=== PATIENT | female | born 1935 | race Caucasian/White ===

== ENCOUNTER → 2016-09-23 | Outpatient (REF) | payer MEDICARE, OTHER ==
[~2016-09-23] MED LIST: ASPI81TA85 PO; CRES40TA PO; FOSI40TA PO; GLYB1TAB65 PO; LEVO250T24 PO; METO-209 PO; NIFE30TA7 PO; PROC60TA PO
== END ==
LOC: M SFHCPLAZ 14:25
PROVIDERS: ATTEND Family Medicine
DX: E11.9 Type 2 diabetes mellitus without complications (principal); Z53.8 Procedure and treatment not carried out for other reasons

== ENCOUNTER → 2017-07-11 | Outpatient (REF) | payer MEDICARE, OTHER | LOC: M SFHCADAM 13:49 | DX: E11.9 Type 2 diabetes mellitus without complications (principal); R35.0 Frequency of micturition; Z53.8 Procedure and treatment not carried out for other reasons ==

== ENCOUNTER → 2017-07-14 | Outpatient (REF) | payer MEDICARE, OTHER ==
[2017-07-14 13:01] LABS: APPEARANCE, URINE HAZY (CLEAR); BACTERIA, URINE AUTO 1+ (NEGATIVE); BILIRUBIN, URINE AUTO NEGATIVE (NEGATIVE); BLOOD, URINE BLOOD 1+ (NEGATIVE); COLOR, URINE YELLOW (YELLOW); GLUCOSE, URINE (UA) AUTO NEGATIVE (NEGATIVE); KETONE, URINE AUTO NEGATIVE (NEGATIVE); LEUKOCYTE ESTERASE, URINE AUTO 1+ (NEGATIVE); MUCUS, URINE SMALL (NEGATIVE); NITRITE, URINE AUTO NEGATIVE (NEGATIVE); PROTEIN, URINE AUTO NEGATIVE (NEGATIVE); RBC, URINE AUTO 6 /HPF (0-3); SPECIFIC GRAVITY URINE AUTO 1.011 (1.002-1.035); SQUAMOUS EPITHELIAL CELL UR AU 2 /HPF (0-6); UROBILINOGEN, URINE AUTO 0.2 mg/dL (0.0-2.0); WBC, URINE AUTO 11 /HPF (0-3)
== END ==
LOC: M SFHCADAM 10:00
DX: E11.9 Type 2 diabetes mellitus without complications (principal); R35.0 Frequency of micturition
CPT/HCPCS: 81001

== ENCOUNTER → 2018-01-09 | Outpatient (REF) | payer MEDICARE, OTHER ==
[2018-01-09 19:55] LABS: ALBUMIN 4.2 GM/DL (3.2-5.2); ALKALINE PHOSPHATASE 73 U/L (45-117); ALT/SGPT 18 U/L (12-78); ANION GAP 9 MEQ/L (8-16); AST/SGOT 13 U/L (7-37); BILIRUBIN,TOTAL 0.6 MG/DL (0.2-1.0); BLOOD UREA NITROGEN 39 MG/DL (7-18); CALCIUM LEVEL 9.1 MG/DL (8.8-10.2); CARBON DIOXIDE LEVEL 23 MEQ/L (21-32); CHLORIDE LEVEL 112 MEQ/L (98-107); CREATININE FOR GFR 1.31 MG/DL (0.55-1.30); GLOMERULAR FILTRATION RATE 41.2 (>32); GLUCOSE, FASTING 179 MG/DL (70-100); SODIUM LEVEL 144 MEQ/L (136-145); TOTAL PROTEIN 7.2 GM/DL (6.4-8.2)
[2018-01-09 19:58] LABS: POTASSIUM SERUM 5.3 MEQ/L (3.5-5.1)
[2018-01-09 20:01] LABS: ESTIMATED AVERAGE GLUCOSE 177 MG/DL (60-110); HEMOGLOBIN A1c 7.8 %
[2018-01-09 20:11] LABS: APPEARANCE, URINE CLOUDY (CLEAR); BACTERIA, URINE AUTO 1+ (NEGATIVE); BILIRUBIN, URINE AUTO NEGATIVE (NEGATIVE); BLOOD, URINE BLOOD NEGATIVE (NEGATIVE); COLOR, URINE YELLOW (YELLOW); GLUCOSE, URINE (UA) AUTO NEGATIVE (NEGATIVE); KETONE, URINE AUTO NEGATIVE (NEGATIVE); LEUKOCYTE ESTERASE, URINE AUTO TRACE (NEGATIVE); MUCUS, URINE SMALL (NEGATIVE); NITRITE, URINE AUTO NEGATIVE (NEGATIVE); PROTEIN, URINE AUTO 1+ mg/dL (NEGATIVE); RBC, URINE AUTO 4 /HPF (0-3); SPECIFIC GRAVITY URINE AUTO 1.021 (1.002-1.035); SQUAMOUS EPITHELIAL CELL UR AU 4 /HPF (0-6); TRIPLE PHOSPHATE CRYSTALS SMALL; UROBILINOGEN, URINE AUTO 0.2 mg/dL (0.0-2.0); WBC, URINE AUTO 2 /HPF (0-3)
[2018-01-09 20:20] LABS: MAU/CREAT RATIO 221.9 MCG/MG (0.0-30.0)
== END ==
LOC: M LABDRWAD 18:52
DX: E11.69 Type 2 diabetes mellitus with other specified complication (principal); R35.0 Frequency of micturition
CPT/HCPCS: 80053

== ENCOUNTER → 2018-03-04 | Outpatient (REF) | payer MEDICARE, OTHER ==
[2018-03-04 22:32] LABS: MAU/CREAT RATIO 135.9 MCG/MG (0.0-30.0)
== END ==
LOC: M SFHCADAM 09:58
DX: R82.90 Unspecified abnormal findings in urine (principal)
CPT/HCPCS: 82043

== ENCOUNTER → 2018-05-10 | Outpatient (CLI) | payer MEDICARE, OTHER ==
[~2018-05-10] MED LIST changes: -FOSI40TA PO; +FOSI40TA2 PO; +LEVO250T12 PO; -LEVO250T24 PO; -METO-209 PO; +METO1TAB33 PO
[2018-05-10 17:58] LABS: HEMOGLOBIN A1c 7.7 %
== END ==
LOC: M ADAMS 15:50
PROVIDERS: ATTEND Family Medicine
DX: R82.90 Unspecified abnormal findings in urine (principal); E11.69 Type 2 diabetes mellitus with other specified complication

== ENCOUNTER → 2018-07-27 | Outpatient (REF) | payer MEDICARE, OTHER ==
[~2018-07-27] MED LIST changes: -FOSI40TA2 PO; +FOSI40TA3 PO
== END ==
LOC: M SFHCPLAZ 19:01
PROVIDERS: ATTEND Dermatology
DX: C44.319 Basal cell carcinoma of skin of other parts of face (principal); C44.301 Unspecified malignant neoplasm of skin of nose

== ENCOUNTER → 2018-08-10 | Outpatient (REF) | payer MEDICARE, OTHER ==
[~2018-08-10] MED LIST changes: +FOSI40TA2 PO; -FOSI40TA3 PO
[2018-08-10 21:17] LABS: BILIRUBIN,TOTAL 0.5 MG/DL (0.2-1.0); CALCIUM LEVEL 9.3 MG/DL (8.8-10.2); CREATININE FOR GFR 1.14 MG/DL (0.55-1.30); GLOMERULAR FILTRATION RATE 48.3 (>32); POTASSIUM SERUM 4.7 MEQ/L (3.5-5.1); TOTAL PROTEIN 7.4 GM/DL (6.4-8.2)
[2018-08-10 21:26] LABS: HEMOGLOBIN A1c 6.7 %
== END ==
LOC: M SFHCADAM 13:08
PROVIDERS: ATTEND Family Medicine
DX: R80.9 Proteinuria, unspecified (principal)

== ENCOUNTER → 2018-11-09 | Outpatient (REF) | payer MEDICARE, OTHER ==
[~2018-11-09] MED LIST changes: -FOSI40TA2 PO; +FOSI40TA3 PO
[2018-11-09 20:20] LABS: HEMOGLOBIN A1c 6.7 %
== END ==
LOC: M SFHCADAM 14:04
PROVIDERS: ATTEND Family Medicine
DX: E11.69 Type 2 diabetes mellitus with other specified complication (principal)

== ENCOUNTER → 2019-05-08 | Outpatient (REF) | payer MEDICARE, OTHER ==
[~2019-05-08] MED LIST changes: -GLYB1TAB65 PO; +GLYB2.5T13 PO
[2019-05-08 17:47] LABS: ALBUMIN 4.1 GM/DL (3.2-5.2); BILIRUBIN,TOTAL 0.4 MG/DL (0.2-1.0); CALCIUM LEVEL 9.5 MG/DL (8.8-10.2); CREATININE FOR GFR 1.47 MG/DL (0.55-1.30); POTASSIUM SERUM 4.4 MEQ/L (3.5-5.1); TOTAL PROTEIN 7.8 GM/DL (6.4-8.2)
[2019-05-08 17:57] LABS: HEMOGLOBIN A1c 6.6 %
== END ==
LOC: M SFHCADAM 14:05
PROVIDERS: ATTEND Family Medicine
DX: E11.69 Type 2 diabetes mellitus with other specified complication (principal)

== ENCOUNTER → 2019-07-14 | Outpatient (REF) | payer MEDICARE, OTHER ==
[~2019-07-14] MED LIST changes: +NIFE1TAB52 PO; -NIFE30TA7 PO
== END ==
LOC: M SFHCADAM 14:54
PROVIDERS: ATTEND Family Medicine
DX: N18.9 Chronic kidney disease, unspecified (principal); Z53.8 Procedure and treatment not carried out for other reasons

== ENCOUNTER → 2020-03-15 | Outpatient (REF) | payer MEDICARE, OTHER ==
[~2020-03-15] MED LIST changes: -ASPI81TA85 PO; +ASPI81TA86 PO
[2020-03-16 13:14] LABS: HEMOGLOBIN A1c 6.5 %
== END ==
LOC: M SFHCADAM 15:50
PROVIDERS: ATTEND Family Medicine
DX: E11.69 Type 2 diabetes mellitus with other specified complication (principal)
CPT/HCPCS: 83036; G0463

== ENCOUNTER 2021-06-30 12:25 | Inpatient (IN) | payer MEDICARE, OTHER ==
[2021-06-30] VITALS (25 sets, daily range): BP systolic 60–120; BP diastolic 40–61
[~2021-06-30] VITALS: Ht 167.6 cm; Wt 78.2 kg
[~2021-06-30 12:25] MED LIST changes: -FOSI40TA3 PO; +FOSI40TA59 PO; -LEVO250T12 PO; +LEVO250T3 PO
[2021-06-30] MEDS ORDERED: PANTOPRAZOLE 40MG VIAL (C9113 PER 1) IV ONE (12:40)
[2021-06-30 13:08] LABS: BASO % 0.1 % (0.0-1.0); HEMOGLOBIN 10.9 g/dl (12.0-15.5); LYMPH # 0.9 10^3/uL (1.5-5.0); LYMPH % 4.2 % (24.0-44.0); MEAN CORPUSCULAR HEMOGLOBIN 26.1 pg (27.0-33.0); MEAN CORPUSCULAR HGB CONC 31.1 g/dl (32.0-36.5); MEAN CORPUSCULAR VOLUME 83.7 fl (80.0-96.0); MONO # 1.4 10^3/uL (0.0-0.8); MONO % 6.5 % (2.0-8.0); NEUTROPHILS # 19.3 10^3/uL (1.5-8.5); NEUTROPHILS % 88.4 % (36.0-66.0); PLATELET COUNT, AUTOMATED 422 10^3/uL (150-450); RED BLOOD COUNT 4.18 10^6/uL (4.00-5.40); WHITE BLOOD COUNT 21.8 10^3/uL (4.0-10.0)
[2021-06-30 13:19] LABS: INR 1.41; PROTHROMBIN TIME 17.7 SECONDS (12.7-14.5)
[2021-06-30 13:20] LABS: PARTIAL THROMBOPLASTIN TIME 29.5 SECONDS (25.9-37.0)
[2021-06-30] MEDS ORDERED: NS 1,000 ML IV ONE ×2 (13:20→14:20)
[2021-06-30 13:39] LABS: ALBUMIN 1.9 GM/DL (3.2-5.2); BILIRUBIN,DIRECT 0.2 MG/DL (0.0-0.2); BILIRUBIN,TOTAL 0.3 MG/DL (0.2-1.0); TOTAL PROTEIN 5.2 GM/DL (6.4-8.2)
[2021-06-30] MEDS ORDERED: PIPERACILLIN/TAZOBACTAM SOD 2.25 GM in D5W MINI-BAG PLUS 50 ML IV ONE (14:20)
[2021-06-30 15:38] LABS: RSV AMPLIFICATION NEGATIVE (NEGATIVE)
[2021-06-30] MEDS ORDERED: SITA50TAB PO (15:40)
[2021-06-30] MEDS ORDERED: ASPI81TA26 PO (15:40)
[2021-06-30] MEDS ORDERED: FOSI40TA59 PO (15:40)
[2021-06-30] MEDS ORDERED: NIFE30TA50 PO (15:40)
[2021-06-30] MEDS ORDERED: GLIP5TAB8 PO (15:40)
[2021-06-30] MEDS ORDERED: HOME MED LIST COMPLETE! XX SCH (15:45)
[2021-06-30] MEDS ORDERED: GLUCAGON INJ 1MG VIAL SC PRN (19:45)
[2021-06-30] MEDS: NS 1,000 ML IV SCH (19:45)
[2021-06-30] MEDS ORDERED: GLUCOSE 4GM CHEW TABLET PO PRN (19:45)
[2021-06-30] MEDS ORDERED: POTASSIUM CHLORIDE 10MEQ SR TABLET PO ONE (19:45)
[2021-06-30] MEDS ORDERED: NS IV SCH (19:50)
[2021-06-30] MEDS ORDERED: CALCIUM GLUCONATE IV SCH (19:50)
[2021-06-30] MEDS: CALCIUM GLUCONATE 1,000 MG, VIAL MATE ADAPTER 1 EACH in NS 100 ML IV SCH ×4 (20:00→23:00)
[2021-06-30] MEDS: PANTOPRAZOLE 40MG VIAL (C9113 PER 1) IV SCH (20:24)
[2021-06-30] MEDS: ACETAMINOPHEN TAB 650MG DOSE (2X325MG) PO PRN (20:25)
[2021-06-30] MEDS: HumaLOG INSULIN (NovoLOG) PER UNIT SC SCH (20:26)
[2021-07-01] VITALS (42 sets, daily range): BP systolic 75–141; BP diastolic 40–61
[2021-07-01] MEDS ORDERED: NS 1,000 ML IV ONE ×3 (00:10→16:00)
[2021-07-01 00:30] LABS: HEMATOCRIT 37.2 % (36.0-47.0); HEMOGLOBIN 12.1 g/dl (12.0-15.5); MEAN CORPUSCULAR HEMOGLOBIN 27.5 pg (27.0-33.0); MEAN CORPUSCULAR HGB CONC 32.5 g/dl (32.0-36.5); MEAN CORPUSCULAR VOLUME 84.5 fl (80.0-96.0); PLATELET COUNT, AUTOMATED 324 10^3/uL (150-450); WHITE BLOOD COUNT 10.1 10^3/uL (4.0-10.0)
[2021-07-01 00:32] LABS: CK-MB VALUE MASS 29.2 NG/ML (<3.6); MB/CK RELATIVE INDEX 3.85 (< OR =4)
[2021-07-01 01:18] LABS: ALBUMIN 1.8 GM/DL (3.2-5.2); BILIRUBIN,TOTAL 0.3 MG/DL (0.2-1.0); CALCIUM LEVEL 8.1 MG/DL (8.8-10.2); CREATININE FOR GFR 4.69 MG/DL (0.55-1.30); GLOMERULAR FILTRATION RATE 9.4 (>32); PHOSPHORUS LEVEL 4.5 MG/DL (2.5-4.9); POTASSIUM SERUM 3.6 MEQ/L (3.5-5.1); TOTAL PROTEIN 4.8 GM/DL (6.4-8.2)
[2021-07-01] MEDS: ACETAMINOPHEN TAB 650MG DOSE (2X325MG) PO PRN (02:18)
[2021-07-01] MEDS: PIPERACILLIN/TAZOBACTAM SOD 4.5 GM in D5W MINI-BAG PLUS 50 ML IV SCH ×2 (02:18→15:09)
[2021-07-01] MEDS ORDERED: NS 500 ML IV ONE (03:45)
[2021-07-01] MEDS: NS 1,000 ML IV SCH ×3 (03:52→10:19)
[2021-07-01 08:06] LABS: HEMOGLOBIN 11.6 g/dl (12.0-15.5); MEAN CORPUSCULAR HEMOGLOBIN 27.2 pg (27.0-33.0); MEAN CORPUSCULAR HGB CONC 31.4 g/dl (32.0-36.5); MEAN CORPUSCULAR VOLUME 86.9 fl (80.0-96.0); PLATELET COUNT, AUTOMATED 315 10^3/uL (150-450); RED BLOOD COUNT 4.26 10^6/uL (4.00-5.40); WHITE BLOOD COUNT 11.1 10^3/uL (4.0-10.0)
[2021-07-01 08:23] LABS: CALCIUM LEVEL 7.8 MG/DL (8.8-10.2); CREATININE FOR GFR 4.47 MG/DL (0.55-1.30); GLOMERULAR FILTRATION RATE 9.9 (>32); POTASSIUM SERUM 3.8 MEQ/L (3.5-5.1)
[2021-07-01 08:32] LABS: CK-MB VALUE MASS 23.1 NG/ML (<3.6); MB/CK RELATIVE INDEX 3.99 (< OR =4)
[2021-07-01] MEDS: HumaLOG INSULIN (NovoLOG) PER UNIT SC SCH ×4 (08:59→21:00)
[2021-07-01] MEDS: METOPROLOL SUCC (TopROL XL) 100MG *XL* TAB PO SCH (08:59)
[2021-07-01] MEDS: PANTOPRAZOLE 40MG VIAL (C9113 PER 1) IV SCH ×2 (08:59→20:42)
[2021-07-01 14:04] LABS: CK-MB VALUE MASS 21.6 NG/ML (<3.6); MB/CK RELATIVE INDEX 4.11 (< OR =4)
[2021-07-01 15:52] LABS: MAGNESIUM LEVEL 6.3 MG/DL (1.7-2.2)
[2021-07-01 16:14] LABS: HEMATOCRIT 39.1 % (36.0-47.0); HEMOGLOBIN 12.3 g/dl (12.0-15.5); MEAN CORPUSCULAR HEMOGLOBIN 27.2 pg (27.0-33.0); MEAN CORPUSCULAR HGB CONC 31.5 g/dl (32.0-36.5); MEAN CORPUSCULAR VOLUME 86.5 fl (80.0-96.0); PLATELET COUNT, AUTOMATED 310 10^3/uL (150-450); RED BLOOD COUNT 4.52 10^6/uL (4.00-5.40); WHITE BLOOD COUNT 8.2 10^3/uL (4.0-10.0)
[2021-07-01 16:28] LABS: CALCIUM LEVEL 7.8 MG/DL (8.8-10.2); CREATININE FOR GFR 4.59 MG/DL (0.55-1.30); GLOMERULAR FILTRATION RATE 9.6 (>32); POTASSIUM SERUM 3.7 MEQ/L (3.5-5.1)
[2021-07-01] MEDS: DEXTROSE 50% 50 ML SYRINGE IV PRN (20:42)
[2021-07-01] MEDS: NS 0.45% 1,000 ML IV SCH ×2 (21:00→23:49)
[2021-07-01 21:03] LABS: HEMATOCRIT 30.9 % (36.0-47.0); HEMOGLOBIN 9.8 g/dl (12.0-15.5); MEAN CORPUSCULAR HEMOGLOBIN 27.6 pg (27.0-33.0); MEAN CORPUSCULAR HGB CONC 31.7 g/dl (32.0-36.5); PLATELET COUNT, AUTOMATED 322 10^3/uL (150-450); RED BLOOD COUNT 3.55 10^6/uL (4.00-5.40); WHITE BLOOD COUNT 11.4 10^3/uL (4.0-10.0)
[2021-07-01 21:21] LABS: CALCIUM LEVEL 7.5 MG/DL (8.8-10.2); CREATININE FOR GFR 4.51 MG/DL (0.55-1.30); GLOMERULAR FILTRATION RATE 9.8 (>32); POTASSIUM SERUM 3.5 MEQ/L (3.5-5.1)
[2021-07-01 21:26] LABS: CK-MB VALUE MASS 17.1 NG/ML (<3.6); MB/CK RELATIVE INDEX 4.17 (< OR =4)
[2021-07-02] VITALS (24 sets, daily range): BP systolic 87–123; BP diastolic 47–75
[2021-07-02] MEDS: ACETAMINOPHEN TAB 650MG DOSE (2X325MG) PO PRN ×2 (01:44→09:56)
[2021-07-02] MEDS: PIPERACILLIN/TAZOBACTAM SOD 4.5 GM in D5W MINI-BAG PLUS 50 ML IV SCH ×2 (02:09→14:35)
[2021-07-02] MEDS: NS 0.45% 1,000 ML IV SCH (05:23)
[2021-07-02 06:18] LABS: HEMATOCRIT 34.2 % (36.0-47.0); HEMOGLOBIN 10.8 g/dl (12.0-15.5); MEAN CORPUSCULAR HEMOGLOBIN 27.6 pg (27.0-33.0); MEAN CORPUSCULAR HGB CONC 31.6 g/dl (32.0-36.5); MEAN CORPUSCULAR VOLUME 87.5 fl (80.0-96.0); PLATELET COUNT, AUTOMATED 303 10^3/uL (150-450); RED BLOOD COUNT 3.91 10^6/uL (4.00-5.40); WHITE BLOOD COUNT 10.3 10^3/uL (4.0-10.0)
[2021-07-02 06:40] LABS: CALCIUM LEVEL 7.6 MG/DL (8.8-10.2); CREATININE FOR GFR 4.43 MG/DL (0.55-1.30); POTASSIUM SERUM 3.6 MEQ/L (3.5-5.1)
[2021-07-02 06:44] LABS: MB/CK RELATIVE INDEX 5.15 (< OR =4)
[2021-07-02] MEDS: HumaLOG INSULIN (NovoLOG) PER UNIT SC SCH ×4 (07:30→20:25)
[2021-07-02] MEDS: METOPROLOL SUCC *XL* 25MG TAB (TopROL *XL*) PO SCH (08:00)
[2021-07-02] MEDS: METOPROLOL SUCC (TopROL XL) 100MG *XL* TAB PO SCH (08:15)
[2021-07-02] MEDS: PANTOPRAZOLE 40MG VIAL (C9113 PER 1) IV SCH ×2 (08:47→20:25)
[2021-07-02] MEDS: DEXTROSE 50% 50 ML SYRINGE IV PRN ×2 (09:32→12:45)
[2021-07-02 13:15] LABS: HEMATOCRIT 40.6 % (36.0-47.0); HEMOGLOBIN 12.5 g/dl (12.0-15.5); MEAN CORPUSCULAR HEMOGLOBIN 26.8 pg (27.0-33.0); MEAN CORPUSCULAR HGB CONC 30.8 g/dl (32.0-36.5); MEAN CORPUSCULAR VOLUME 87.1 fl (80.0-96.0); PLATELET COUNT, AUTOMATED 318 10^3/uL (150-450); RED BLOOD COUNT 4.66 10^6/uL (4.00-5.40); WHITE BLOOD COUNT 10.1 10^3/uL (4.0-10.0)
[2021-07-02] MEDS: D5W IV SCH ×3 (13:23→21:00)
[2021-07-02] MEDS: SODIUM BICARBONATE IV SCH ×3 (13:23→21:00)
[2021-07-02] MEDS: POTASSIUM CHLORIDE IV SCH ×3 (13:23→21:00)
[2021-07-02 13:37] LABS: CALCIUM LEVEL 7.3 MG/DL (8.8-10.2); CREATININE FOR GFR 4.21 MG/DL (0.55-1.30); GLOMERULAR FILTRATION RATE 10.6 (>32); POTASSIUM SERUM 4.1 MEQ/L (3.5-5.1)
[2021-07-02 13:40] LABS: CK-MB VALUE MASS 13.6 NG/ML (<3.6); MB/CK RELATIVE INDEX 4.89 (< OR =4)
[2021-07-02] MEDS ORDERED: MORPHINE 2 MG/ML 1ML VIAL (J2270) IV ONE (14:15)
[2021-07-02] MEDS ORDERED: LIDOCAINE 1% MDV 20ML VIAL As Ordered ONE (14:57)
[2021-07-03] VITALS (13 sets, daily range): BP systolic 99–142; BP diastolic 50–74
[2021-07-03] MEDS: PIPERACILLIN/TAZOBACTAM SOD 4.5 GM in D5W MINI-BAG PLUS 50 ML IV SCH ×2 (02:38→15:00)
[2021-07-03 04:19] LABS: BASO % 0.3 % (0.0-1.0); EOS # 0.4 10^3/uL (0.0-0.5); HEMATOCRIT 32.7 % (36.0-47.0); LYMPH # 1.2 10^3/uL (1.5-5.0); LYMPH % 12.7 % (24.0-44.0); MEAN CORPUSCULAR HEMOGLOBIN 27.4 pg (27.0-33.0); MEAN CORPUSCULAR HGB CONC 31.8 g/dl (32.0-36.5); MEAN CORPUSCULAR VOLUME 86.1 fl (80.0-96.0); MONO # 0.7 10^3/uL (0.0-0.8); MONO % 7.3 % (2.0-8.0); NEUTROPHILS # 7.1 10^3/uL (1.5-8.5); NEUTROPHILS % 73.8 % (36.0-66.0); PLATELET COUNT, AUTOMATED 293 10^3/uL (150-450); WHITE BLOOD COUNT 9.6 10^3/uL (4.0-10.0)
[2021-07-03 04:28] LABS: HEMOGLOBIN 10.4 g/dl (12.0-15.5)
[2021-07-03] MEDS: SODIUM BICARBONATE IV SCH ×2 (04:30→13:53)
[2021-07-03] MEDS: POTASSIUM CHLORIDE IV SCH ×2 (04:30→13:53)
[2021-07-03] MEDS: D5W IV SCH ×2 (04:30→13:53)
[2021-07-03 05:03] LABS: CALCIUM LEVEL 6.9 MG/DL (8.8-10.2); CREATININE FOR GFR 3.8 MG/DL (0.55-1.30); POTASSIUM SERUM 3.5 MEQ/L (3.5-5.1)
[2021-07-03] MEDS: METOPROLOL SUCC *XL* 25MG TAB (TopROL *XL*) PO SCH (09:00)
[2021-07-03] MEDS: PANTOPRAZOLE 40MG VIAL (C9113 PER 1) IV SCH ×2 (09:08→20:04)
[2021-07-03] MEDS: HumaLOG INSULIN (NovoLOG) PER UNIT SC SCH ×2 (09:08→12:45)
[2021-07-04] VITALS: BP 128/60
[2021-07-04] MEDS: PIPERACILLIN/TAZOBACTAM SOD 4.5 GM in D5W MINI-BAG PLUS 50 ML IV SCH ×2 (03:22→15:23)
[2021-07-04 04:00] VITALS: BP 112/55
[2021-07-04 06:20] LABS: HEMATOCRIT 32.6 % (36.0-47.0); HEMOGLOBIN 10.4 g/dl (12.0-15.5); MEAN CORPUSCULAR HEMOGLOBIN 27.5 pg (27.0-33.0); MEAN CORPUSCULAR HGB CONC 31.9 g/dl (32.0-36.5); MEAN CORPUSCULAR VOLUME 86.2 fl (80.0-96.0); PLATELET COUNT, AUTOMATED 301 10^3/uL (150-450); RED BLOOD COUNT 3.78 10^6/uL (4.00-5.40); WHITE BLOOD COUNT 12.3 10^3/uL (4.0-10.0)
[2021-07-04] MEDS: SODIUM BICARBONATE IV SCH (06:29)
[2021-07-04] MEDS: POTASSIUM CHLORIDE IV SCH (06:29)
[2021-07-04] MEDS: D5W IV SCH (06:29)
[2021-07-04 07:00] LABS: ALBUMIN 1.5 GM/DL (3.2-5.2); BILIRUBIN,TOTAL 0.4 MG/DL (0.2-1.0); CALCIUM LEVEL 7.1 MG/DL (8.8-10.2); CREATININE FOR GFR 3.02 MG/DL (0.55-1.30); GLOMERULAR FILTRATION RATE 15.6 (>32); POTASSIUM SERUM 3.5 MEQ/L (3.5-5.1); TOTAL PROTEIN 4.5 GM/DL (6.4-8.2)
[2021-07-04 08:00] VITALS: BP 112/58
[2021-07-04] MEDS: PANTOPRAZOLE 40MG VIAL (C9113 PER 1) IV SCH ×2 (09:39→20:20)
[2021-07-04] MEDS: METOPROLOL SUCC *XL* 25MG TAB (TopROL *XL*) PO SCH (09:39)
[2021-07-04] MEDS: KCL 20MEQ IN 0.45NS 1000ML 1,000 ML IV SCH ×2 (11:01→23:41)
[2021-07-04 12:00] VITALS: BP 118/62
[2021-07-04 16:00] VITALS: BP 120/58
[2021-07-04 20:00] VITALS: BP 129/73
[2021-07-05] VITALS (7 sets, daily range): BP systolic 132–174; BP diastolic 60–88
[2021-07-05] MEDS: PIPERACILLIN/TAZOBACTAM SOD 4.5 GM in D5W MINI-BAG PLUS 50 ML IV SCH ×2 (03:36→15:23)
[2021-07-05] MEDS: METOPROLOL SUCC *XL* 25MG TAB (TopROL *XL*) PO SCH (05:16)
[2021-07-05 06:20] LABS: HEMOGLOBIN 10.4 g/dl (12.0-15.5); MEAN CORPUSCULAR HEMOGLOBIN 27.6 pg (27.0-33.0); MEAN CORPUSCULAR HGB CONC 31.5 g/dl (32.0-36.5); MEAN CORPUSCULAR VOLUME 87.5 fl (80.0-96.0); PLATELET COUNT, AUTOMATED 317 10^3/uL (150-450); RED BLOOD COUNT 3.77 10^6/uL (4.00-5.40); WHITE BLOOD COUNT 13.7 10^3/uL (4.0-10.0)
[2021-07-05 07:01] LABS: ALBUMIN 1.6 GM/DL (3.2-5.2); BILIRUBIN,TOTAL 0.3 MG/DL (0.2-1.0); CREATININE FOR GFR 2.06 MG/DL (0.55-1.30); GLOMERULAR FILTRATION RATE 24.2 (>32); POTASSIUM SERUM 4.5 MEQ/L (3.5-5.1); TOTAL PROTEIN 4.5 GM/DL (6.4-8.2)
[2021-07-05] MEDS: PANTOPRAZOLE 40MG VIAL (C9113 PER 1) IV SCH ×2 (09:33→21:23)
[2021-07-06] MEDS: PIPERACILLIN/TAZOBACTAM SOD 4.5 GM in D5W MINI-BAG PLUS 50 ML IV SCH ×2 (03:21→15:34)
[2021-07-06 04:30] VITALS: BP 140/70
[2021-07-06 06:23] LABS: HEMATOCRIT 35.5 % (36.0-47.0); MEAN CORPUSCULAR HEMOGLOBIN 27.5 pg (27.0-33.0); MEAN CORPUSCULAR VOLUME 88.8 fl (80.0-96.0); PLATELET COUNT, AUTOMATED 369 10^3/uL (150-450); WHITE BLOOD COUNT 16.1 10^3/uL (4.0-10.0)
[2021-07-06 06:47] LABS: ALBUMIN 1.7 GM/DL (3.2-5.2); BILIRUBIN,TOTAL 0.4 MG/DL (0.2-1.0); CALCIUM LEVEL 7.3 MG/DL (8.8-10.2); CREATININE FOR GFR 1.66 MG/DL (0.55-1.30); GLOMERULAR FILTRATION RATE 31.1 (>32); POTASSIUM SERUM 3.4 MEQ/L (3.5-5.1)
[2021-07-06] MEDS ORDERED: KCL 20MEQ IN 0.45NS 1000ML 1,000 ML IV SCH (07:00)
[2021-07-06] MEDS: PANTOPRAZOLE 40MG VIAL (C9113 PER 1) IV SCH (07:55)
[2021-07-06 08:00] VITALS: BP 164/77
[2021-07-06] MEDS: METOPROLOL SUCC *XL* 25MG TAB (TopROL *XL*) PO SCH (08:00)
[2021-07-06] MEDS: ACETAMINOPHEN TAB 650MG DOSE (2X325MG) PO PRN ×2 (11:04→20:32)
[2021-07-06 17:12] LABS: CALCIUM LEVEL 7.2 MG/DL (8.8-10.2); CREATININE FOR GFR 1.6 MG/DL (0.55-1.30); GLOMERULAR FILTRATION RATE 32.5 (>32); POTASSIUM SERUM 3.2 MEQ/L (3.5-5.1)
[2021-07-06] MEDS ORDERED: POTASSIUM CHLORIDE 10MEQ SR TABLET PO ONE (17:35)
[2021-07-06 20:00] VITALS: BP 132/62
[2021-07-06] MEDS: AUGMENTIN 500 MG TAB PO SCH (20:32)
[2021-07-07] VITALS: BP 131/87
[2021-07-07] MEDS ORDERED: GI COCKTAIL 50ML BTL(HYOSCYAMINE/MAALOX/LIDOCAINE VISCOUS)(1:3:1) PO ONE
[2021-07-07 04:00] VITALS: BP 134/66
[2021-07-07] MEDS: ACETAMINOPHEN TAB 650MG DOSE (2X325MG) PO PRN ×3 (04:27→20:40)
[2021-07-07 05:29] LABS: HEMOGLOBIN 10.1 g/dl (12.0-15.5); MEAN CORPUSCULAR HEMOGLOBIN 27.5 pg (27.0-33.0); MEAN CORPUSCULAR HGB CONC 30.6 g/dl (32.0-36.5); MEAN CORPUSCULAR VOLUME 89.9 fl (80.0-96.0); PLATELET COUNT, AUTOMATED 352 10^3/uL (150-450); RED BLOOD COUNT 3.67 10^6/uL (4.00-5.40); WHITE BLOOD COUNT 18.2 10^3/uL (4.0-10.0)
[2021-07-07 05:49] LABS: ALBUMIN 1.7 GM/DL (3.2-5.2); BILIRUBIN,TOTAL 0.2 MG/DL (0.2-1.0); CALCIUM LEVEL 7.2 MG/DL (8.8-10.2); CREATININE FOR GFR 1.57 MG/DL (0.55-1.30); GLOMERULAR FILTRATION RATE 33.2 (>32); POTASSIUM SERUM 3.8 MEQ/L (3.5-5.1); TOTAL PROTEIN 4.7 GM/DL (6.4-8.2)
[2021-07-07] MEDS ORDERED: NS 0.45% 1,000 ML IV SCH (07:30)
[2021-07-07 08:00] VITALS: BP 135/67
[2021-07-07] MEDS: AUGMENTIN 500 MG TAB PO SCH ×2 (08:50→20:40)
[2021-07-07] MEDS: METOPROLOL SUCC *XL* 25MG TAB (TopROL *XL*) PO SCH (08:51)
[2021-07-07 09:48] LABS: MAGNESIUM LEVEL 2.3 MG/DL (1.8-2.4)
[2021-07-07] MEDS ORDERED: MORPHINE 2 MG/ML 1ML VIAL (J2270) IV ONE (10:20)
[2021-07-07 12:19] LABS: CLOSTRIDIUM DIFFICILE PCR NEGATIVE (NEGATIVE)
[2021-07-07 12:39] LABS: HEMATOCRIT 33.3 % (36.0-47.0); HEMOGLOBIN 10.2 g/dl (12.0-15.5)
[2021-07-07 16:00] VITALS: BP 142/64
[2021-07-07 20:00] VITALS: BP 136/62
[2021-07-07] MEDS: MORPHINE 2 MG/ML 1ML VIAL (J2270) IV PRN (23:03)
[2021-07-08] VITALS: BP 140/63
[2021-07-08 04:00] VITALS: BP 143/68
[2021-07-08] MEDS: MORPHINE 2 MG/ML 1ML VIAL (J2270) IV PRN (05:06)
[2021-07-08 05:24] LABS: HEMATOCRIT 32.8 % (36.0-47.0); HEMOGLOBIN 9.8 g/dl (12.0-15.5); MEAN CORPUSCULAR HEMOGLOBIN 26.9 pg (27.0-33.0); MEAN CORPUSCULAR HGB CONC 29.9 g/dl (32.0-36.5); MEAN CORPUSCULAR VOLUME 90.1 fl (80.0-96.0); PLATELET COUNT, AUTOMATED 343 10^3/uL (150-450); RED BLOOD COUNT 3.64 10^6/uL (4.00-5.40); WHITE BLOOD COUNT 17.8 10^3/uL (4.0-10.0)
[2021-07-08 05:55] LABS: ALBUMIN 1.8 GM/DL (3.2-5.2); BILIRUBIN,TOTAL 0.2 MG/DL (0.2-1.0); CALCIUM LEVEL 7.4 MG/DL (8.8-10.2); CREATININE FOR GFR 1.24 MG/DL (0.55-1.30); GLOMERULAR FILTRATION RATE 43.6 (>32); POTASSIUM SERUM 3.8 MEQ/L (3.5-5.1); TOTAL PROTEIN 4.7 GM/DL (6.4-8.2)
[2021-07-08 07:55] VITALS: BP 190/102
[2021-07-08] MEDS: METOPROLOL SUCC *XL* 25MG TAB (TopROL *XL*) PO SCH (08:01)
[2021-07-08] MEDS: AUGMENTIN 500 MG TAB PO SCH (08:01)
[2021-07-08 12:00] VITALS: BP 198/93
[2021-07-08] MEDS ORDERED: amLODIPine 5 MG TAB PO ONE (12:25)
[2021-07-08 20:00] VITALS: BP 147/70
[2021-07-09] VITALS (7 sets, daily range): BP systolic 131–178; BP diastolic 68–80
[2021-07-09 05:21] LABS: HEMATOCRIT 33.3 % (36.0-47.0); HEMOGLOBIN 10.2 g/dl (12.0-15.5); MEAN CORPUSCULAR HEMOGLOBIN 27.6 pg (27.0-33.0); MEAN CORPUSCULAR HGB CONC 30.6 g/dl (32.0-36.5); PLATELET COUNT, AUTOMATED 350 10^3/uL (150-450); WHITE BLOOD COUNT 18.9 10^3/uL (4.0-10.0)
[2021-07-09 05:51] LABS: ALBUMIN 1.9 GM/DL (3.2-5.2); BILIRUBIN,TOTAL 0.3 MG/DL (0.2-1.0); CALCIUM LEVEL 7.4 MG/DL (8.8-10.2); CREATININE FOR GFR 1.01 MG/DL (0.55-1.30); GLOMERULAR FILTRATION RATE 55.2 (>32); POTASSIUM SERUM 3.8 MEQ/L (3.5-5.1); TOTAL PROTEIN 5.1 GM/DL (6.4-8.2)
[2021-07-09] MEDS: METOPROLOL SUCC *XL* 25MG TAB (TopROL *XL*) PO SCH (08:14)
[2021-07-09] MEDS: NIFEdipine 30 MG XL TAB PO SCH (13:52)
[2021-07-09] MEDS ORDERED: CEFEPIME HCL 2 GM in D5W MINI-BAG PLUS 50 ML IV SCH (15:40)
[2021-07-09] MEDS: CEFEPIME HCL 2 GM in D5W MINI-BAG PLUS 50 ML IV SCH (16:08)
[2021-07-10] VITALS: BP 144/71
[2021-07-10 04:00] VITALS: BP 162/69
[2021-07-10] MEDS: CEFEPIME HCL 2 GM in D5W MINI-BAG PLUS 50 ML IV SCH ×2 (04:19→16:29)
[2021-07-10] MEDS: ACETAMINOPHEN TAB 650MG DOSE (2X325MG) PO PRN ×2 (04:19→18:28)
[2021-07-10 05:28] LABS: HEMATOCRIT 31.8 % (36.0-47.0); HEMOGLOBIN 9.6 g/dl (12.0-15.5); MEAN CORPUSCULAR HEMOGLOBIN 27.4 pg (27.0-33.0); MEAN CORPUSCULAR HGB CONC 30.2 g/dl (32.0-36.5); MEAN CORPUSCULAR VOLUME 90.9 fl (80.0-96.0); PLATELET COUNT, AUTOMATED 345 10^3/uL (150-450)
[2021-07-10 05:53] LABS: ALBUMIN 1.8 GM/DL (3.2-5.2); ALT/SGPT 13 U/L (12-78); BILIRUBIN,TOTAL 0.3 MG/DL (0.2-1.0); BLOOD UREA NITROGEN 16 MG/DL (7-18); CALCIUM LEVEL 7.7 MG/DL (8.8-10.2); CARBON DIOXIDE LEVEL 30 MEQ/L (21-32); CHLORIDE LEVEL 111 MEQ/L (98-107); CREATININE FOR GFR 0.85 MG/DL (0.55-1.30); GLOMERULAR FILTRATION RATE > 60.0 (>32); GLUCOSE, FASTING 146 MG/DL (70-100); POTASSIUM SERUM 3.5 MEQ/L (3.5-5.1); SODIUM LEVEL 147 MEQ/L (136-145)
[2021-07-10] MEDS: MORPHINE 4 MG/ML 1ML VIAL/SYRINGE (J2270) IV PRN ×3 (06:20→21:02)
[2021-07-10 08:00] VITALS: BP 165/81
[2021-07-10] MEDS: METOPROLOL SUCC *XL* 25MG TAB (TopROL *XL*) PO SCH (08:07)
[2021-07-10] MEDS: NIFEdipine 30 MG XL TAB PO SCH (08:07)
[2021-07-10 12:00] VITALS: BP 153/69
[2021-07-10 19:53] VITALS: BP 150/67
[2021-07-11] VITALS (8 sets, daily range): BP systolic 132–176; BP diastolic 60–77; O2SAT 88–94
[2021-07-11 04:28] LABS: HEMATOCRIT 33.1 % (36.0-47.0); HEMOGLOBIN 9.9 g/dl (12.0-15.5); MEAN CORPUSCULAR HEMOGLOBIN 27.3 pg (27.0-33.0); MEAN CORPUSCULAR HGB CONC 29.9 g/dl (32.0-36.5); MEAN CORPUSCULAR VOLUME 91.4 fl (80.0-96.0); PLATELET COUNT, AUTOMATED 304 10^3/uL (150-450); RED BLOOD COUNT 3.62 10^6/uL (4.00-5.40); WHITE BLOOD COUNT 14.1 10^3/uL (4.0-10.0)
[2021-07-11] MEDS: CEFEPIME HCL 2 GM in D5W MINI-BAG PLUS 50 ML IV SCH ×2 (04:30→16:47)
[2021-07-11] MEDS: MORPHINE 4 MG/ML 1ML VIAL/SYRINGE (J2270) IV PRN ×3 (04:31→17:34)
[2021-07-11 04:57] LABS: ALBUMIN 1.8 GM/DL (3.2-5.2); ALT/SGPT 13 U/L (12-78); BILIRUBIN,TOTAL 0.3 MG/DL (0.2-1.0); BLOOD UREA NITROGEN 14 MG/DL (7-18); CALCIUM LEVEL 7.4 MG/DL (8.8-10.2); CARBON DIOXIDE LEVEL 31 MEQ/L (21-32); CHLORIDE LEVEL 108 MEQ/L (98-107); CREATININE FOR GFR 0.84 MG/DL (0.55-1.30); GLOMERULAR FILTRATION RATE > 60.0 (>32); GLUCOSE, FASTING 178 MG/DL (70-100); POTASSIUM SERUM 3.5 MEQ/L (3.5-5.1); SODIUM LEVEL 147 MEQ/L (136-145); TOTAL PROTEIN 5.3 GM/DL (6.4-8.2)
[2021-07-11] MEDS: NIFEdipine 30 MG XL TAB PO SCH (08:50)
[2021-07-11] MEDS: METOPROLOL SUCC *XL* 25MG TAB (TopROL *XL*) PO SCH (08:50)
[2021-07-11] MEDS: ACETAMINOPHEN TAB 650MG DOSE (2X325MG) PO PRN ×2 (09:27→21:45)
[2021-07-11] MEDS: metroNIDAZOLE 500 MG in IV 1 EA IV SCH (18:48)
[2021-07-11] MEDS ORDERED: ALBUTEROL SULFATE 2.5 MG/0.5 ML INH NEB SOLN NEB PRN (19:10)
[2021-07-11] MEDS: HumaLOG INSULIN (NovoLOG) PER UNIT SC SCH (21:46)
[2021-07-12] VITALS (24 sets, daily range): BP systolic 113–149; BP diastolic 54–70; O2SAT 86–93
[2021-07-12] MEDS: MORPHINE 4 MG/ML 1ML VIAL/SYRINGE (J2270) IV PRN ×3 (00:50→15:03)
[2021-07-12] MEDS: metroNIDAZOLE 500 MG in IV 1 EA IV SCH ×3 (02:39→17:46)
[2021-07-12] MEDS: ACETAMINOPHEN TAB 650MG DOSE (2X325MG) PO PRN (02:40)
[2021-07-12] MEDS: SIMETHICONE 80MG CHEW TAB PO PRN ×2 (03:50→11:58)
[2021-07-12] MEDS: CEFEPIME HCL 2 GM in D5W MINI-BAG PLUS 50 ML IV SCH ×2 (04:40→17:12)
[2021-07-12 05:04] LABS: HEMATOCRIT 31.3 % (36.0-47.0); HEMOGLOBIN 9.7 g/dl (12.0-15.5); MEAN CORPUSCULAR HEMOGLOBIN 28.1 pg (27.0-33.0); MEAN CORPUSCULAR VOLUME 90.7 fl (80.0-96.0); PLATELET COUNT, AUTOMATED 266 10^3/uL (150-450); RED BLOOD COUNT 3.45 10^6/uL (4.00-5.40); WHITE BLOOD COUNT 11.1 10^3/uL (4.0-10.0)
[2021-07-12 05:25] LABS: BLOOD UREA NITROGEN 14 MG/DL (7-18); CALCIUM LEVEL 7.4 MG/DL (8.8-10.2); CARBON DIOXIDE LEVEL 32 MEQ/L (21-32); CHLORIDE LEVEL 106 MEQ/L (98-107); CREATININE FOR GFR 0.87 MG/DL (0.55-1.30); GLOMERULAR FILTRATION RATE > 60.0 (>32); GLUCOSE, FASTING 188 MG/DL (70-100); POTASSIUM SERUM 3.1 MEQ/L (3.5-5.1); SODIUM LEVEL 146 MEQ/L (136-145)
[2021-07-12] MEDS ORDERED: POTASSIUM CHLORIDE 10% LIQ 20 MEQ/15 ML UDC PO ONE (05:45)
[2021-07-12 06:26] LABS: CK-MB VALUE MASS 2.3 NG/ML (<3.6); MB/CK RELATIVE INDEX 6.97 (< OR =4)
[2021-07-12] MEDS ORDERED: FUROSEMIDE 40MG/4ML VIAL (J1940) IV ONE ×2 (08:00→16:45)
[2021-07-12] MEDS: METOPROLOL SUCC *XL* 25MG TAB (TopROL *XL*) PO SCH (08:17)
[2021-07-12] MEDS: NIFEdipine 30 MG XL TAB PO SCH (08:17)
[2021-07-12] MEDS: HumaLOG INSULIN (NovoLOG) PER UNIT SC SCH ×4 (08:18→20:48)
[2021-07-12] MEDS ORDERED: ALBUTEROL SULFATE 2.5 MG/0.5 ML INH NEB SOLN NEB SCH (12:00)
[2021-07-12 13:23] LABS: ABG BASE EXCESS 10.7 (-2.0-2.0); ABG HCO3 35.8 MEQ/L (22.0-26.0); ABG O2 SATURATION 93.1 % (95.0-99.0); ABG PARTIAL PRESSURE CO2 50.4 mmHg (35.0-45.0); ABG PARTIAL PRESSURE O2 61.4 mmHg (75.0-100.0); ABG STANDARD HCO3 34.3 MEQ/L (22.0-26.0); ABG TOTAL CO2 37.3 MEQ/L (23.0-31.0); ABG pH (ARTERIAL) 7.469 UNITS (7.350-7.450)
[2021-07-12] MEDS ORDERED: LEVALBUTEROL 1.25 MG/0.5 ML CONCENTRATE NEB NEB ONE (13:55)
[2021-07-12] MEDS ORDERED: LEVALBUTEROL 1.25 MG/0.5 ML CONCENTRATE NEB NEB PRN (14:10)
[2021-07-12] MEDS ORDERED: ISOVUE-370 76% 100ML VIAL As Ordered ONE (14:59)
[2021-07-12] MEDS: ENOXAPARIN 40MG/0.4ML SYRINGE (J1650 PER 10MG) SC SCH (15:03)
[2021-07-12] MEDS: ASPIRIN 81MG ENTERIC TABLET PO SCH (15:04)
[2021-07-12] MEDS: guaiFENesin 200 MG TAB PO SCH ×2 (17:11→21:00)
[2021-07-12] MEDS ORDERED: REMDESIVIR 200 MG in NS 250 ML IV ONE (21:00)
[2021-07-12 21:06] LABS: ABG BASE EXCESS 8.5 (-2.0-2.0); ABG HCO3 32.9 MEQ/L (22.0-26.0); ABG O2 SATURATION 97.9 % (95.0-99.0); ABG PARTIAL PRESSURE CO2 45.1 mmHg (35.0-45.0); ABG PARTIAL PRESSURE O2 93.2 mmHg (75.0-100.0); ABG STANDARD HCO3 32.3 MEQ/L (22.0-26.0); ABG TOTAL CO2 34.3 MEQ/L (23.0-31.0); ABG pH (ARTERIAL) 7.481 UNITS (7.350-7.450)
[2021-07-12 21:21] LABS: INR 1.17; PROTHROMBIN TIME 15.3 SECONDS (12.7-14.5)
[2021-07-12 21:22] LABS: PARTIAL THROMBOPLASTIN TIME 39.4 SECONDS (25.9-37.0)
[2021-07-12 21:25] LABS: D-DIMER QUANT 3342.32 ng/ml (<500)
[2021-07-12 21:29] LABS: MAGNESIUM LEVEL 1.2 MG/DL (1.8-2.4)
[2021-07-12] MEDS ORDERED: SODIUM CHLORIDE 0.9% INJ 10 ML SYR IV ONE (23:00)
[2021-07-13] VITALS (12 sets, daily range): BP systolic 107–153; BP diastolic 55–72
[2021-07-13] MEDS: MAG SULF 1GM/100ML (MAG RUN) 1 GM in IV 1 EA IV SCH ×2 (00:59→03:51)
[2021-07-13] MEDS: guaiFENesin 200 MG TAB PO SCH ×6 (01:00→21:36)
[2021-07-13] MEDS: metroNIDAZOLE 500 MG in IV 1 EA IV SCH ×3 (02:05→17:33)
[2021-07-13] MEDS: CEFEPIME HCL 2 GM in D5W MINI-BAG PLUS 50 ML IV SCH ×2 (05:06→17:32)
[2021-07-13 05:22] LABS: HEMATOCRIT 32.2 % (36.0-47.0); HEMOGLOBIN 9.8 g/dl (12.0-15.5); MEAN CORPUSCULAR HEMOGLOBIN 27.3 pg (27.0-33.0); MEAN CORPUSCULAR HGB CONC 30.4 g/dl (32.0-36.5); MEAN CORPUSCULAR VOLUME 89.7 fl (80.0-96.0); PLATELET COUNT, AUTOMATED 256 10^3/uL (150-450); RED BLOOD COUNT 3.59 10^6/uL (4.00-5.40); WHITE BLOOD COUNT 10.9 10^3/uL (4.0-10.0)
[2021-07-13 05:47] LABS: ALBUMIN 1.8 GM/DL (3.2-5.2); BILIRUBIN,DIRECT 0.2 MG/DL (0.0-0.2); BILIRUBIN,TOTAL 0.4 MG/DL (0.2-1.0); CALCIUM LEVEL 7.1 MG/DL (8.8-10.2); CREATININE FOR GFR 1.01 MG/DL (0.55-1.30); GLOMERULAR FILTRATION RATE 55.2 (>32); POTASSIUM SERUM 3.1 MEQ/L (3.5-5.1); TOTAL PROTEIN 5.5 GM/DL (6.4-8.2)
[2021-07-13] MEDS: HumaLOG INSULIN (NovoLOG) PER UNIT SC SCH ×5 (07:30→21:00)
[2021-07-13] MEDS ORDERED: POTASSIUM CHLORIDE 10MEQ SR TABLET PO ONE (08:15)
[2021-07-13] MEDS: ENOXAPARIN 40MG/0.4ML SYRINGE (J1650 PER 10MG) SC SCH (09:22)
[2021-07-13] MEDS: METOPROLOL SUCC *XL* 25MG TAB (TopROL *XL*) PO SCH (09:23)
[2021-07-13] MEDS: dexameTHASONE 4 MG/ML 1ML VIAL (J1100 PER 1MG) IV SCH (09:24)
[2021-07-13] MEDS: BARICITINIB 2MG TABLET (OLUMIANT) FOR EUA PO SCH (09:26)
[2021-07-13] MEDS: ASPIRIN 81MG ENTERIC TABLET PO SCH (09:26)
[2021-07-13] MEDS: NIFEdipine 30 MG XL TAB PO SCH (09:43)
[2021-07-13] MEDS: MORPHINE 4 MG/ML 1ML VIAL/SYRINGE (J2270) IV PRN (17:44)
[2021-07-13] MEDS ORDERED: FUROSEMIDE 40MG/4ML VIAL (J1940) IV ONE (18:00)
[2021-07-13 18:10] LABS: CALCIUM LEVEL 7.1 MG/DL (8.8-10.2); CREATININE FOR GFR 1.11 MG/DL (0.55-1.30); GLOMERULAR FILTRATION RATE 49.5 (>32); POTASSIUM SERUM 3.6 MEQ/L (3.5-5.1)
[2021-07-13] MEDS ORDERED: REMDESIVIR 100 MG in NS 250 ML IV SCH (21:00)
[2021-07-13] MEDS ORDERED: SODIUM CHLORIDE 0.9% INJ 10 ML SYR IV SCH (22:00)
[2021-07-14] VITALS (9 sets, daily range): BP systolic 104–140; BP diastolic 53–67
[2021-07-14] MEDS: guaiFENesin 200 MG TAB PO SCH ×4 (01:00→13:00)
[2021-07-14] MEDS: metroNIDAZOLE 500 MG in IV 1 EA IV SCH ×2 (02:05→09:19)
[2021-07-14] MEDS: CEFEPIME HCL 2 GM in D5W MINI-BAG PLUS 50 ML IV SCH (05:22)
[2021-07-14 05:36] LABS: HEMATOCRIT 30.5 % (36.0-47.0); MEAN CORPUSCULAR HEMOGLOBIN 26.8 pg (27.0-33.0); MEAN CORPUSCULAR HGB CONC 29.5 g/dl (32.0-36.5); MEAN CORPUSCULAR VOLUME 90.8 fl (80.0-96.0); PLATELET COUNT, AUTOMATED 260 10^3/uL (150-450); RED BLOOD COUNT 3.36 10^6/uL (4.00-5.40); WHITE BLOOD COUNT 8.9 10^3/uL (4.0-10.0)
[2021-07-14] MEDS ORDERED: SODIUM CHLORIDE 0.9% INJ 10 ML SYR IV SCH (06:00)
[2021-07-14 06:09] LABS: ALBUMIN 1.6 GM/DL (3.2-5.2); BILIRUBIN,DIRECT 0.1 MG/DL (0.0-0.2); BILIRUBIN,TOTAL 0.4 MG/DL (0.2-1.0); CALCIUM LEVEL 7.1 MG/DL (8.8-10.2); CREATININE FOR GFR 1.27 MG/DL (0.55-1.30); GLOMERULAR FILTRATION RATE 42.4 (>32); POTASSIUM SERUM 3.8 MEQ/L (3.5-5.1); TOTAL PROTEIN 5.2 GM/DL (6.4-8.2)
[2021-07-14] MEDS ORDERED: SODIUM CHLORIDE 0.9% INJ 10 ML SYR IV PRN (07:40)
[2021-07-14] MEDS ORDERED: FUROSEMIDE 40MG/4ML VIAL (J1940) IV ONE (07:55)
[2021-07-14 08:07] LABS: MAGNESIUM LEVEL 1.7 MG/DL (1.8-2.4)
[2021-07-14] MEDS: ASPIRIN 81MG ENTERIC TABLET PO SCH (09:00)
[2021-07-14] MEDS: BARICITINIB 2MG TABLET (OLUMIANT) FOR EUA PO SCH (09:00)
[2021-07-14] MEDS: dexameTHASONE 4 MG/ML 1ML VIAL (J1100 PER 1MG) IV SCH (09:18)
[2021-07-14] MEDS: ENOXAPARIN 40MG/0.4ML SYRINGE (J1650 PER 10MG) SC SCH (09:21)
[2021-07-14] MEDS: HumaLOG INSULIN (NovoLOG) PER UNIT SC SCH ×2 (09:21→12:47)
[2021-07-14] MEDS: NIFEdipine 30 MG XL TAB PO SCH (10:07)
[2021-07-14] MEDS: METOPROLOL SUCC *XL* 25MG TAB (TopROL *XL*) PO SCH (10:07)
[2021-07-14] MEDS ORDERED: MAG SULF 1GM/100ML (MAG RUN) 1 GM in IV 1 EA IV ONE (11:00)
[2021-07-14 14:26] LABS: ABG BASE EXCESS 7.9 (-2.0-2.0); ABG HCO3 34.3 MEQ/L (22.0-26.0); ABG O2 SATURATION 97.4 % (95.0-99.0); ABG PARTIAL PRESSURE CO2 57.1 mmHg (35.0-45.0); ABG PARTIAL PRESSURE O2 103.7 mmHg (75.0-100.0); ABG STANDARD HCO3 31.7 MEQ/L (22.0-26.0); ABG pH (ARTERIAL) 7.396 UNITS (7.350-7.450)
[2021-07-14] MEDS ORDERED: MORPHINE 10MG/0.5ML ORAL CONCENTRATE SOLUTION U/D SL PRN (16:10)
[2021-07-14] MEDS ORDERED: FLEET ENEMA PR PRN (16:10)
[2021-07-14] MEDS ORDERED: ATROPINE SULFATE 1% OP SOLN 2 ML BTL SL PRN (16:10)
[2021-07-14] MEDS ORDERED: SCOPOLAMINE 1MG TRANSDERMAL PATCH TOP PRN (16:10)
[2021-07-14] MEDS ORDERED: HYOSCYAMINE SULFATE 0.125 MG SUBL TABLET PO PRN (16:10)
[2021-07-14] MEDS ORDERED: MORPHINE 4 MG/ML 1ML VIAL/SYRINGE (J2270) IV PRN (16:10)
[2021-07-14] MEDS ORDERED: BISACODYL 10 MG SUPP PR PRN (16:10)
[2021-07-14] MEDS ORDERED: ACETAMINOPHEN 650 MG SUPP PR PRN (16:10)
[2021-07-14] MEDS ORDERED: ONDANSETRON 4MG/2ML VIAL IV PRN (16:10)
[2021-07-14] MEDS ORDERED: LORazepam 1 MG TAB PO PRN (16:10)
[2021-07-14] MEDS ORDERED: LORazepam 2 MG/ML VIAL As Ordered ONE (16:35)
[2021-07-14] MEDS: LORazepam 2 MG/ML VIAL IV PRN ×2 (16:57→17:27)
[2021-07-14] MEDS ORDERED: LORazepam 2 MG/ML VIAL IV STA (17:21)
[2021-07-14] MEDS ORDERED: ENOXAPARIN 80MG/0.8ML SYRINGE (J1650 PER 10MG) SC SCH (18:00)
== END 2021-07-14 21:46 | disposition expired | DRG 871 ==
LOC: EDBD 12:25 → M ED 12:25 → M ED INP 15:28 → M PCU 18:00 → M ICU 07-12 20:48
PROVIDERS: ADMIT Family Medicine; ATTEND Family Medicine
PROC: 30233N1 Transfusion of Nonautologous Red Blood Cells into Peripheral Vein, Percutaneous Approach (ICD-10-PCS; 2021-06-30)
PROC: 02HV33Z Insertion of Infusion Device into Superior Vena Cava, Percutaneous Approach (ICD-10-PCS; 2021-07-02)
PROC: 0DBP7ZX Excision of Rectum, Via Natural or Artificial Opening, Diagnostic (ICD-10-PCS; principal; 2021-07-05)
DX: A41.9 Sepsis, unspecified organism (principal); I21.3 ST elevation (STEMI) myocardial infarction of unspecified site; U07.1 COVID-19; J12.82 Pneumonia due to coronavirus disease 2019; J96.01 Acute respiratory failure with hypoxia; J69.0 Pneumonitis due to inhalation of food and vomit; I50.33 Acute on chronic diastolic (congestive) heart failure; K92.2 Gastrointestinal hemorrhage, unspecified; K81.0 Acute cholecystitis; D62 Acute posthemorrhagic anemia; E87.0 Hyperosmolality and hypernatremia; N17.9 Acute kidney failure, unspecified; K62.6 Ulcer of anus and rectum; J90 Pleural effusion, not elsewhere classified; E87.2 Acidosis; I48.91 Unspecified atrial fibrillation; E11.22 Type 2 diabetes mellitus with diabetic chronic kidney disease; E11.649 Type 2 diabetes mellitus with hypoglycemia without coma; R13.10 Dysphagia, unspecified; E83.41 Hypermagnesemia; R65.20 Severe sepsis without septic shock; I95.9 Hypotension, unspecified; R19.7 Diarrhea, unspecified; K64.9 Unspecified hemorrhoids; Z79.899 Other long term (current) drug therapy; Z79.82 Long term (current) use of aspirin